=== PATIENT | male | born 1995 | race Caucasian/White ===

== ENCOUNTER → 2017-04-16 | Outpatient (CLI) | payer BC ==
--- NOTE | 2017-04-16 15:39 | REP ---
Clinical: Trauma. Technique: AP, lateral, bilateral oblique views left first digit . Findings: The osseous structures and joint spaces are intact and normal. The patient is status post scaphoid fixation. There is no evidence for acute fracture or dislocation. Surrounding soft tissues are unremarkable. No subcutaneous emphysema or radiodense foreign body. Impression: No acute fracture or dislocation. Signed by Gage Giang MD 04/16/2017 03:30 P
== END ==
LOC: M ADAMS 14:58
PROVIDERS: ATTEND Physician Assistant
DX: M79.645 Pain in left finger(s) (principal); S61.002A Unspecified open wound of left thumb without damage to nail, initial encounter; X58.XXXA Exposure to other specified factors, initial encounter; Y93.9 Activity, unspecified; Y92.9 Unspecified place or not applicable; Y99.8 Other external cause status

== ENCOUNTER → 2017-10-09 | Outpatient (CLI) | payer BC | LOC: M RAD 14:51 | DX: M25.532 Pain in left wrist (principal) ==

== ENCOUNTER → 2019-05-14 | Outpatient (CLI) | payer BC ==
--- NOTE | 2019-05-14 19:20 | REP ---
Lumbar spine five views: There are no comparisons. Vertebral body heights, interspacing alignment are normal. The pedicles and facets are unremarkable. The sacroiliac articulations are unremarkable. There is no spondylolysis or there is mild scoliosis convex left, possibly positional. Impression: Essentially negative lumbar spine. Electronically Signed by Robinson Harper MD 05/14/2019 07:12 P
== END ==
LOC: M ADAMS 18:15
PROVIDERS: ATTEND Physician Assistant Medical
DX: S30.0XXA Contusion of lower back and pelvis, initial encounter (principal); X58.XXXA Exposure to other specified factors, initial encounter; Y92.89 Other specified places as the place of occurrence of the external cause